=== PATIENT | male | born 1955 | race Caucasian/White ===

== ENCOUNTER 2019-07-25 11:24 | Emergency (ER) | payer MEDICARE ==
[~2019-07-25] VITALS: Ht 185.4 cm; Wt 99.1 kg
[2019-07-25 11:40] VITALS: Ht 185.4 cm; Wt 99.1 kg
[2019-07-25] MEDS ORDERED: LISINOPRIL40 MG PO (11:42)
[2019-07-25] MEDS ORDERED: GABAPENTIN100 MG PO (11:43)
[2019-07-25] MEDS ORDERED: HYDROCODON-ACE1 EAC7 PO (11:43)
[2019-07-25] MEDS ORDERED: [UNRECOGNIZED DRUG - REMARK] (11:44)
[2019-07-25] MEDS ORDERED: AMITRIPTYLINE100 MG PO (11:44)
[2019-07-25 12:15] LABS: BASOPHILS 0.4 % (0-2); EOSINOPHILS 1.8 % (0-7); HEMATOCRIT 42.8 % (42.0-54.0); HEMOGLOBIN 14.9 g/dL (13.5-17.5); IMMATURE GRANULOCYTES 0.1 % (0-5); LYMPHOCYTES 22.1 % (15-50); MCH 30.7 pg (26.0-34.0); MCHC 34.8 g/dL (31.0-37.0); MCV 88.2 fL (80.0-100.0); MEAN PLATELET VOLUME 9.9 fL (7.4-10.4); MONOCYTES 7.9 % (2-11); NEUTROPHILS 67.7 % (40-80); PLATELET COUNT 205 10x3/uL (130-400); RBC 4.85 10x6/uL (4.20-6.10); RDW 12.6 % (11.5-14.5); WBC 6.7 10x3/uL (4.8-10.8)
[2019-07-25 12:22] LABS: APPEARANCE CLEAR (CLEAR); BILIRUBIN NEGATIVE (NEGATIVE); COLOR YELLOW (YELLOW); GLUCOSE NEGATIVE (NEGATIVE); KETONE NEGATIVE (NEGATIVE); NITRITE NEGATIVE (NEGATIVE); PROTEIN NEGATIVE (NEGATIVE); SPECIFIC GRAVITY 1.015 (1.005-1.020); UROBILINOGEN NORMAL (NORMAL)
[2019-07-25 12:23] LABS: ALBUMIN 4.2 g/dL (3.4-5.0); ANION GAP 11.7 mmol/L (8-16); BILIRUBIN - TOTAL 0.43 mg/dL (0.2-1.3); CALCIUM 8.8 mg/dL (8.5-10.1); CARBON DIOXIDE 29.8 mmol/L (21.0-32.0); CREATININE - SERUM 1.2 mg/dL (0.6-1.3); POTASSIUM - SERUM 3.5 mmol/L (3.5-5.1); PROTEIN - SERUM 7.2 g/dL (6.4-8.2)
[2019-07-25 12:51] LABS: APTT 27.3 SECONDS (22.8-39.4); INR 1.12 (0.85-1.17); PROTIME 13.9 SECONDS (11.6-15.0)
[2019-07-25 13:45] VITALS: BP 124/75
== END 2019-07-25 13:34 | disposition home or self-care (01) ==
LOC: D.ER 11:24
PROVIDERS: Family Medicine
DX: R53.1 Weakness (principal); R47.89 Other speech disturbances

== ENCOUNTER 2019-07-27 17:02 | Emergency (ER) | payer MEDICARE ==
[~2019-07-27] VITALS: Ht 185.4 cm; Wt 99.1 kg
[~2019-07-27 17:02] MED LIST: AMITRIPTYLINE100 MG PO; GABAPENTIN100 MG PO; HYDROCODON-ACE1 EAC7 PO; LISINOPRIL40 MG PO; [UNRECOGNIZED DRUG - REMARK]
[2019-07-27 17:05] VITALS: Ht 185.4 cm; Wt 99.1 kg
[2019-07-27 17:39] LABS: BASOPHILS 0.6 % (0-2); EOSINOPHILS 2.3 % (0-7); HEMOGLOBIN 14.1 g/dL (13.5-17.5); IMMATURE GRANULOCYTES 0.2 % (0-5); LYMPHOCYTES 27.6 % (15-50); MCHC 34.4 g/dL (31.0-37.0); MCV 87.2 fL (80.0-100.0); MEAN PLATELET VOLUME 9.9 fL (7.4-10.4); MONOCYTES 7.7 % (2-11); NEUTROPHILS 61.6 % (40-80); PLATELET COUNT 186 10x3/uL (130-400); RDW 12.5 % (11.5-14.5); WBC 4.8 10x3/uL (4.8-10.8)
[2019-07-27 17:56] LABS: ALBUMIN 3.9 g/dL (3.4-5.0); ALKALINE PHOSPHATASE 66 U/L (46-116); ALT (SGPT) 138 U/L (10-68); BILIRUBIN - TOTAL 0.66 mg/dL (0.2-1.3); CALC OSMOLALITY 284 mosm/kg (275-300); CALCIUM 8.4 mg/dL (8.5-10.1); CARBON DIOXIDE 30.2 mmol/L (21.0-32.0); CHLORIDE - SERUM 104 mmol/L (98-107); GLUCOSE 118 mg/dL (74-106); POTASSIUM - SERUM 4.5 mmol/L (3.5-5.1); PROTEIN - SERUM 6.7 g/dL (6.4-8.2); SODIUM 141 mmol/L (136-145); UREA NITROGEN 20 mg/dL (7-18); eGFR NON AFRICAN AMERICAN 80 mL/min (90-120)
[2019-07-27 17:58] LABS: APTT 27.8 SECONDS (22.8-39.4); INR 1.11 (0.85-1.17); PROTIME 13.8 SECONDS (11.6-15.0)
[2019-07-27 18:07] LABS: CKMB 1.9 U/L (0.0-3.6); CREATINE KINASE 126 UL (21-232); MAGNESIUM - SERUM 1.9 mg/dL (1.8-2.4); TROPONIN-I 0.037 ng/mL (0.000-0.060)
--- NOTE | 2019-07-27 18:10 | NUR ---
PATIENT IS AWAKE AND ALERT; NO COMPLAINTS; SPOUSE AT BEDSIDE; UPDATED ON PLAN OF CARE AND DELAYS IN CARE; WILL CONTINUE TO MONITOR.
[2019-07-27 18:26] VITALS: BP 164/104
--- NOTE | 2019-07-27 19:07 | NUR ---
BS REPORT TO SAMINA DUMONT BY SBAR FORMAT
--- NOTE | 2019-07-27 19:14 | NUR ---
PT REPORT RECEIVED FROM SAMINA POWELL USING SBAR COMMUNICATION
[2019-07-27 19:30] VITALS: BP 138/88
--- NOTE | 2019-07-27 20:35 | NUR ---
PT RETURNED FROM [place].
[2019-07-27 21:10] VITALS: BP 149/94
--- NOTE | 2019-07-27 21:50 | NUR ---
PT ACCEPTED AT [facility] FOR [id number] CONSULT. ACCEPTING DR. PALACIO.
--- NOTE | 2019-07-27 22:00 | NUR ---
REPORT CALLED TO SAMINA SEXTON AT [facility]
--- NOTE | 2019-07-27 22:15 | NUR ---
[facility] CALLED FOR TRANSPORTATION
[2019-07-27 22:34] VITALS: BP 139/85
[2019-07-28 00:05] VITALS: BP 148/90
== END 2019-07-28 00:05 | disposition short-term general hospital (02) ==
LOC: OBSVTIME → D.ER 17:02 → D.M2 20:34 → OBSVTIME 20:34 → D.ER 07-28 00:05
PROVIDERS: Family Medicine
DX: R55 Syncope and collapse (principal)